=== PATIENT | female | born 1960 | race Caucasian/White ===

== ENCOUNTER 2017-06-01 11:53 | Day surgery (SDC) | payer OTHER ==
[~2017-06-01] VITALS: Ht 157.5 cm; Wt 109.7 kg
[~2017-06-01 11:53] MED LIST: ALBU.083IS IH; ALBU90OI INH; ALBU90OI61 INH; CITA20 PO; CLIN150 PO; CLIN300 PO; CYCL10 PO; DIPH25 PO; DOXY100 PO; HYDACE5 PO; HYDCHL25 PO; LISI10 PO; LISI5 PO; MECL25 PO; METH10 PO; METH5 PO; OXYACE5T PO; OXYC5 PO; PRED20 PO; PROCODE120 PO; PROP10 PO; Percocet 5-3251 EACH PO; Prednisone20 MG PO; Prinivil5 MG PO; RXCLIN PO; SERT100 PO; Tylenol325 MG PO; Zithromax250 MG PO; [UNRECOGNIZED DRUG - OTHER]
== END 2017-06-01 12:21 | disposition home or self-care (01) ==
LOC: ORSCSDS 11:53
PROVIDERS: Orthopaedic Surgery
PROC: 0JBD0ZZ Excision of Right Upper Arm Subcutaneous Tissue and Fascia, Open Approach (ICD-10-PCS; principal; 2017-06-01 13:30)
DX: D17.21 Benign lipomatous neoplasm of skin and subcutaneous tissue of right arm (principal); E66.01 Morbid (severe) obesity due to excess calories; Z68.41 Body mass index [BMI] 40.0-44.9, adult; J45.909 Unspecified asthma, uncomplicated; Z79.899 Other long term (current) drug therapy
CPT/HCPCS: 88304; J1100; J2250; J2405; J3010; J7120

== ENCOUNTER 2018-07-23 18:45 | Emergency (ER) | payer OTHER ==
[~2018-07-23] VITALS: Ht 160 cm; Wt 109.3 kg
[2018-07-23] MEDS ORDERED: TRAZ50 PO (19:21)
[2018-07-23] MEDS ORDERED: VENL75ER PO (19:21)
[2018-07-23] MEDS ORDERED: ZESTORETIC 20-251 EA PO (19:21)
[2018-07-23] MEDS ORDERED: AMLO5 PO (19:22)
[2018-07-23] MEDS ORDERED: BENZ100A PO (19:30)
== END 2018-07-23 19:42 | disposition home or self-care (01) ==
LOC: ER 18:45
DX: J06.9 Acute upper respiratory infection, unspecified (principal); J45.909 Unspecified asthma, uncomplicated; I10 Essential (primary) hypertension; F32.9 Major depressive disorder, single episode, unspecified; Z88.0 Allergy status to penicillin; Z88.2 Allergy status to sulfonamides; Z91.030 Bee allergy status; Z79.899 Other long term (current) drug therapy; Z87.01 Personal history of pneumonia (recurrent)
CPT/HCPCS: 71046; 99283-25

== ENCOUNTER 2020-03-29 08:11 | Day surgery (SDC) | payer OTHER ==
[~2020-03-29] VITALS: Ht 157.5 cm; Wt 110.8 kg
[~2020-03-29 08:11] MED LIST changes: +AMLO5 PO; +BENZ100A PO; +TRAZ50 PO; +VENL75ER PO; +ZESTORETIC 20-251 EA PO
[2020-03-29] MEDS ORDERED: BUSP10 (08:42)
[2020-03-29] MEDS ORDERED: SERT20L (08:43)
== END 2020-03-29 09:59 | disposition home or self-care (01) ==
LOC: ORSCSDS 08:11
PROVIDERS: Internal Medicine Gastroenterology
PROC: 0DBM8ZX Excision of Descending Colon, Via Natural or Artificial Opening Endoscopic, Diagnostic (ICD-10-PCS; principal; 2020-03-29 09:15)
DX: Z12.11 Encounter for screening for malignant neoplasm of colon (principal); D12.4 Benign neoplasm of descending colon; K57.30 Diverticulosis of large intestine without perforation or abscess without bleeding; K64.8 Other hemorrhoids; I10 Essential (primary) hypertension; E66.01 Morbid (severe) obesity due to excess calories; Z68.41 Body mass index [BMI] 40.0-44.9, adult; Z79.899 Other long term (current) drug therapy
CPT/HCPCS: 88305; J2704; J7120

== ENCOUNTER → 2020-11-11 | Outpatient (CLI) | payer OTHER ==
[~2020-11-11] MED LIST changes: +BUSP10; +SERT20L
== END | disposition home or self-care (01) ==
LOC: LAB SHORT 08:00
DX: L57.0 Actinic keratosis (principal)
CPT/HCPCS: 88305

== ENCOUNTER 2021-11-25 11:48 | Inpatient (IN) | payer OTHER ==
[~2021-11-25] VITALS: Ht 167.6 cm; Wt 91.0 kg
[~2021-11-25 11:48] MED LIST changes: -SERT20L; -TRAZ50 PO; -ZESTORETIC 20-251 EA PO
[2021-11-25 12:15] LABS: BASOPHILS ABSOLUTE AUTO 0.03 K/mm3 (0.00-0.23); BASOPHILS PERCENT AUTO 0 % (0-2); EOSINOPHILS ABSOLUTE AUTO 0.16 K/mm3 (0.00-0.68); EOSINOPHILS PERCENT AUTO 2 % (0-6); Hemoglobin 12.2 g/dL (11.5-16.0); IMMATURE GRAN ABSOLUTE AUTO 0.02 K/mm3 (0.00-0.10); IMMATURE GRAN PERCENT AUTO 0 % (0-1); LYMPHOCYTES ABSOLUTE AUTO 1.92 K/mm3 (0.84-5.20); LYMPHOCYTES PERCENT AUTO 20 % (21-46); MONOCYTES ABSOLUTE AUTO 0.43 K/mm3 (0.16-1.47); MONOCYTES PERCENT AUTO 4 % (4-13); Mean Corpuscular HGB 28.9 pg (26.0-34.0); Mean Corpuscular HGB Conc 31.3 g/dL (31.5-36.5); Mean Corpuscular Volume 92 fL (80-100); Mean Platelet Volume 10.1 fL (9.1-12.4); NEUTROPHILS ABSOLUTE AUTO 7.28 K/mm3 (1.96-9.15); NEUTROPHILS PERCENT AUTO 74 % (41-73); Platelet Count 185 K/mm3 (150-400); RDW Coefficient Variation 14.6 % (11.7-14.2); RDW Standard Deviation 50.2 fL (35.1-46.3); Red Blood Cell Count 4.22 M/mm3 (3.80-5.20); White Blood Cell Count 9.84 K/mm3 (4.00-11.30)
[2021-11-25 12:20] LABS: Base Excess Venous -3.4 mmol/L; Bicarbonate Venous 20.7 mmol/L (24.0-30.0); pH Blood Venous 7.23 (7.34-7.37)
[2021-11-25 12:40] LABS: Alanine Aminotransfer (ALT/SGP 22 U/L (12-78); Albumin, Blood 3.3 g/dL (3.4-5.0); Albumin/Globulin Ratio 0.9 (0.8-1.8); Alk Phos 75 U/L (50-136); Anion Gap 7 mmol/L (6-16); Aspartate Aminotrans (AST/SGOT 24 U/L (12-37); Bilirubin, Total 0.3 mg/dL (0.1-1.0); Blood Urea Nitrogen 23 mg/dL (8-24); Bun/Creatinine Ratio 6.2 (12.0-20.0); CO2, Blood 24 mmol/L (21-32); Calcium, Blood 9.5 mg/dL (8.5-10.1); Chloride, Blood 109 mmol/L (98-108); Creatinine, Blood 3.73 mg/dL (0.40-1.00); Ethanol (Alcohol), Blood, Med <3 mg/dL; Globulin, Blood 3.6 g/dL (2.2-4.0); Glomerular Filtration Rate 13 (60-); Glucose, Blood 117 mg/dL (70-99); Potassium, Blood 4.6 mmol/L (3.5-5.5); Sodium, Blood 140 mmol/L (136-145); Total Protein, Blood 6.9 g/dL (6.4-8.2)
[2021-11-25 13:32] LABS: International Normalized Ratio 0.99; Prothrombin Time Results 10.4 Sec (9.7-11.5)
[2021-11-25 14:34] LABS: Source, Urine Foley catheter
[2021-11-25 14:44] LABS: Appearance, Urine Cloudy (Clear); Blood, Urine 2+ (Neg); Color, Urine Yellow (P-Yellow); Glucose Qualitative, Urine 1+ (Neg); Ketones, Urine 1+ (Neg); Leukocyte Esterase, Urine 2+ (Neg); Nitrite, Urine Neg (Neg); Protein, Urine 3+ (Neg); Specific Gravity, Urine 1.025 (1.003-1.022); Urobilinogen, Urine 1+ (Normal)
[2021-11-25 14:57] LABS: U Methadone Screen DETECTED; U Opiates Screen DETECTED
[2021-11-25 14:58] LABS: U Amphetamine Screen Not Detected; U Barbituate Screen Not Detected; U Benzodiazapine Screen DETECTED; U Buprenorphine Screen Not Detected; U Cannabinoids Screen Not Detected; U Cocaine Screen Not Detected; U Methamphetamine Screen Not Detected; U Oxycodone Screen Not Detected; U Phencyclidine Screen Not Detected; U Propoxyphene Screen Not Detected
[2021-11-25 15:04] LABS: Bilirubin, Urine 1+ (Neg)
[2021-11-25 15:07] LABS: Amorphous Light (0-Heavy); Bacteria Many /hpf; Calcium Oxalate Crystals Few /hpf; Red Blood Cells, Urine 0-2 /hpf (0-2); Squamous Epithelial Cells Rare /hpf (Few); White Blood Cells, Urine 0-2 /hpf (0-5)
[2021-11-25 15:13] LABS: PCO2 Arterial 52.4 mmHg (35-45); PO2 Arterial 96.4 mmHg (80-100); pH Blood Arterial 7.23 (7.35-7.45)
[2021-11-25 16:23] LABS: Albumin, Blood 3.4 g/dL (3.4-5.0); Anion Gap 9 mmol/L (6-16); Blood Urea Nitrogen 22 mg/dL (8-24); Bun/Creatinine Ratio 6.5 (12.0-20.0); CO2, Blood 22 mmol/L (21-32); Calcium, Blood 9.2 mg/dL (8.5-10.1); Chloride, Blood 110 mmol/L (98-108); Creatinine, Blood 3.39 mg/dL (0.40-1.00); Glomerular Filtration Rate 15 (60-); Glucose, Blood 155 mg/dL (70-99); Phosphorus, Blood 4.2 mg/dL (2.5-4.9); Sodium, Blood 141 mmol/L (136-145)
[2021-11-25 17:49] LABS: PCO2 Arterial 49.5 mmHg (35-45); PO2 Arterial 74.5 mmHg (80-100); pH Blood Arterial 7.27 (7.35-7.45)
--- NOTE | 2021-11-25 19:30 | NUR ---
PT ARRIVED TO ICU AT 1835. INTUBATED IN ER, ARRIVED WITH RN AND RT AT BEDSIDE. DAUGHTER VERIFIED IDENTITY AT BEDSIDE. LEVOPHED STOPPED UPON ARRIVAL DUE TO SBP 160. PT IN SOFT BILAT WRIST RESTRAINTS. SKIN CHECK COMPLETED WITH SANDEEP SLATER. NO SKIN BREAKDOWN IDENTIFIED. 2 LARGE MEDICATION PATCHES REMOVED FROM LOWER BACK. DAUGHTER LEFT MEDICATIONS AT BEDSIDE FOR VERIFICATION/RECONCILIATION PURPOSES. PIV LEFT FOREARM REMOVED DUE TO INFILTRATION. PIV TO RIGHT HAND AND LEFT HAND. REPORT GIVEN TO ONCOMING RN.
--- NOTE | 2021-11-25 21:28 | NUR ---
PT NEW ADMIT TO ICU AROUND 1830. PT INTUBATED AND SEDATED FAMILY NOT IN THE ROOM. DR BARKER DID SPEAK WITH FAMILY MEMBER AND THERE IS CONCERN THAT THIS COULD HAVE BEEN AND INTENTIONAL OD POSSIBLE SUICIDE ATTEMPT. MEDICATIONS WERE WITH PT BELONGINGS SENT THEM TO PHARMACY TO BE REVIEWED AND STORED. PT CURRENTLY ON 10 MCG PROPOFOL WILL OPEN EYES TO VOICE NOT FOLLOWING COMMANDS AT THIS TIME. WILL CONTINUE TO MONITOR.
[2021-11-25 23:43] LABS: PCO2 Arterial 30.4 mmHg (35-45); PO2 Arterial 60.9 mmHg (80-100); pH Blood Arterial 7.39 (7.35-7.45)
--- NOTE | 2021-11-26 00:30 | NUR ---
PT WEDDING RING PT HAD WEDDING RING ON THAT WAS GETTING TIGHT. REMOVED PUT IN SPECIMEN CUP WITH PT LABEL AND PUT IT IN HER BLACK AND RED BAG THAT DAUGHTER BROUGHT MEDICATIONS IN. THE BAG IS ON HER SHELF IN HER ROOM NEXT TO HER BELONGING BAG. PT MEDICATIONS WERE TAKEN TO PHARMACY.
[2021-11-26 03:41] LABS: Hemoglobin 12.8 g/dL (11.5-16.0); Mean Corpuscular HGB 28.3 pg (26.0-34.0); Mean Corpuscular Volume 89 fL (80-100); Mean Platelet Volume 10.5 fL (9.1-12.4); Platelet Count 207 K/mm3 (150-400); RDW Coefficient Variation 14.3 % (11.7-14.2); RDW Standard Deviation 46.5 fL (35.1-46.3); Red Blood Cell Count 4.52 M/mm3 (3.80-5.20); White Blood Cell Count 8.55 K/mm3 (4.00-11.30)
[2021-11-26 04:18] LABS: Anion Gap 11 mmol/L (6-16); Blood Urea Nitrogen 20 mg/dL (8-24); Bun/Creatinine Ratio 9.8 (12.0-20.0); CO2, Blood 20 mmol/L (21-32); Calcium, Blood 10.1 mg/dL (8.5-10.1); Chloride, Blood 110 mmol/L (98-108); Creatinine, Blood 2.05 mg/dL (0.40-1.00); Glomerular Filtration Rate 27 (60-); Glucose, Blood 220 mg/dL (70-99); Potassium, Blood 3.6 mmol/L (3.5-5.5); Sodium, Blood 141 mmol/L (136-145)
[2021-11-26 04:42] LABS: Phosphorus, Blood 0.8 mg/dL (2.5-4.9)
--- NOTE | 2021-11-26 05:02 | NUR ---
END OF SHIFT SUMMARY NO ACUTE CHANGES OVERNIGHT. PT BP REMAINED STABLE OFF LEVO. PT ON 20 OF PROPOFOL AND APPEARS COMFORTABLE AND TOLERATING VENT. PHOS CAME BACK LOW AT 0.8 DR. NEWMAN NOTIFIED AND REPLACEMENTS ORDERED. WILL CONTINUE TO MONITOR. WILL GIVE BEDSIDE REPORT TO ONCOMING RN.
--- NOTE | 2021-11-26 05:55 | NUR ---
PT OPENED EYES THIS MORNING FOLLOWED ALL COMMANDS WAS ABLE TO SQUEEZE WITH BILAT HANDS THIS RN HAND. PT ABLE TO WIGGLE TOES AND NOD YES. WILL GIVE REPORT TO ONCOMING RN.
--- NOTE | 2021-11-26 07:47 | NUR ---
RECEIVED BEDSIDE REPORT FROM SANDEEP BENITEZ, [facility] HERE TO PERFORM ORDERED TEST. PT ON VENT AC 22/360/8/35%. PROPOFOL @ 20MCG/KG, PHOS REPLACEMENT INFUSING. ASSIST TO GET LEADS ON PT IS LEFT FACING WITH STRONG PULL, IN TO SEE PT. ORDERS RECEIVED. PT NOW UNDERGOING EEG. PROPOFOL ON STANDBY, FULL ASSESSMENT TO FOLLOW, SEE CHARTING.
--- NOTE | 2021-11-26 11:47 | NUR ---
PT'S PROPOFOL DOWN TO 10MCG/KG PER REQUEST. SHE IS MORE ALERT, DROWSY. EYES ARE TEARFUL, NOT ANSWERING QUESTIONS AT THIS TIME. SISTER AT THE BEDSIDE.
--- NOTE | 2021-11-26 15:02 | NUR ---
ASSUMED CARE OF PT AT 1430. PT IS ALERT AND ORIENTED. HAS MISSED DIALYSIS TODAY DUE TO BEING IN THE HOSPITAL, SHE IS NORMALLY ON A -- SCHEDULE OUTPT. PER REPORT, PT'S PROXIMAL PORT WHERE HEPARIN WAS INFUSING WAS OCCLUDED. INSTRUCTIONS FROM CHAIN TENDER/DR. IVERSON WERE TO MOVE HEPARIN TO THE PERIPHERAL IV LINE AND KEEP TPA INFUSING. PT STATES PAIN IN ARM HAS LESSENED. PT TAKEN BACK TO CHAIN TENDER AT 1445. RN TO CONTINUE TO MONITOR.
--- NOTE | 2021-11-26 19:17 | NUR ---
END OF SHIFT NOTE ASSUMED CARE OF PT AT 1430. ALERT AND FOLLOWING COMMANDS OFF SEDATION. TOLERATING VENT SETTINGS. REPOSITIONED EVERY 2 HOURS. FAMILY (MOTHER AND MOTHER IN LAW) IN TO VISIT. EDUCATED ON PLAN OF CARE. ALL QUESTIONS ANSWERED. SEDATION RESTARTED PER MD REQUEST, PLAN FOR EXTUBATION TOMORROW. REPORT GIVEN TO ONCOMING RN.
--- NOTE | 2021-11-26 19:45 | NUR ---
ASSESSMENT: PT SEDATED, BUT OPENS EYES TO VERBAL STIMULI AND ATTEMPTS TO NOD HEAD. IS QUITE RESTLESS WITH HER LEGS. TANIA AT 3MM BILAT. BILAT WRIST RESTRAINTS ON. LS COARSE T/O AND DIMINSHD NTHE BASES WITH BIOX 93% ON VENT SETTINGS AC 22, TV 360, FIO2 30% AND PEEP5. ETT 7.5 23 AT LIP. PEAK PRESSURES 22 AND ETCO2 23. SKIN PINK WARM AND DRY WITH PPP BILAT. MORALES TEMP READING 100.1; FAN ON WITH ONLY A GOWN ON. HEART SOUNDS DISTANT WITH MOITOR SHOWING NSR WITH HR 63. 20G IV R HAND S/L. 20G IV L HAND WITH LR RUNNING AT 100CC/HR ND PROPOFOL AT 20MCG/KG/MIN= 14CC/HR. ABD R/D WITH HYPO BTX4. OG TO LIS AND DRAINING DARK BILE. MORALES DRAINING CLEAR YELLOW UINE.
--- NOTE | 2021-11-27 00:41 | NUR ---
REASSESS: PT IS VERY RIGID AND STIFF WITH TURNS. EASILY AROUSED BUT DRIFTS BACK ASLEEP QUICKLY. NO ACUTE CHANGES.
[2021-11-27 03:56] LABS: Albumin, Blood 2.7 g/dL (3.4-5.0); Anion Gap 6 mmol/L (6-16); Blood Urea Nitrogen 18 mg/dL (8-24); CO2, Blood 25 mmol/L (21-32); Calcium, Blood 9.4 mg/dL (8.5-10.1); Chloride, Blood 111 mmol/L (98-108); Creatinine, Blood 1.38 mg/dL (0.40-1.00); Glomerular Filtration Rate 44 (60-); Glucose, Blood 117 mg/dL (70-99); Magnesium, Blood 1.7 mg/dL (1.6-2.4); Phosphorus, Blood 2.4 mg/dL (2.5-4.9); Potassium, Blood 4.1 mmol/L (3.5-5.5); Sodium, Blood 142 mmol/L (136-145)
[2021-11-27 05:02] LABS: Hematocrit 40.3 % (33.0-51.0); Hemoglobin 13.3 g/dL (11.5-16.0); Mean Corpuscular HGB 28.8 pg (26.0-34.0); Mean Corpuscular Volume 87 fL (80-100); Mean Platelet Volume 10.2 fL (9.1-12.4); Platelet Count 214 K/mm3 (150-400); RDW Coefficient Variation 14.7 % (11.7-14.2); RDW Standard Deviation 46.9 fL (35.1-46.3); Red Blood Cell Count 4.62 M/mm3 (3.80-5.20)
--- NOTE | 2021-11-27 06:01 | NUR ---
SHIFT SUMMARY: PT HAS BEEN ON 20MCG/KG/HR OF PROPOFOL THIS AM AND IS AWAKE AND RESPONSIVE. FOLLOWING COMMANDS AND SLOW TO RESPOND. PT IS VERY RIGID WITH TURNS. WILL TRY FOR A WEAN LATER THIS AM.
--- NOTE | 2021-11-27 10:18 | NUR ---
CAME TO EVALUATE THE PATIENT, DETERMINED SHE IS ABLE TO BE EXTUBATED AT THIS TIME, RESPIRATORY THERAPY CALLED, BENJAMIN LANDON CAME AND PT WAS EXTUBATED AT 1007. SHE IS ALERT AND COOPERATIVE. SHE IS PLACED IN 1:1 OBSERVATION FOR INTENTIONAL OD. EXPLAINED TO PATIENT.
--- NOTE | 2021-11-27 10:55 | NUR ---
Pt. is awake in bed and welcomes my visit. Pts. sister is present. Pt. is unsettled about many family losses in the past year, including her spouse. Pt. verbalizes that she is a woman of turner. Listen empathetically with a calming presence. Pt. displays evidence of being appropriately cathartic. Pastoral financial services counselor is given addressing the real impact of grief, and the promise of hope. Pt. displayed evidence of understanding and agreement. Prayed with Pt. Pt. verbalized gratitude for the spiritual care visit.
--- NOTE | 2021-11-27 13:25 | NUR ---
CAME TO SEE KENNY POST EXTUBATION. DC'D THE SITTER AND SAID SHE COULD BE PCU STATUS. SHE RETURNED TO THE BED WITH SBA USING THE WALKER, FOLLOWING COMMANDS. THE CATHETER WAS REMOVED BY THE STUDENT NURSE AND THE AMOUNT RECORDED. PT JOVIAL AND ENGAGING. DENIES ANY REQUESTS AT THIS TIME.
[2021-11-27] MEDS ORDERED: FLUT.05NI (13:44)
[2021-11-27] MEDS ORDERED: Cetirizine HCl10 MG PO (13:44)
[2021-11-27] MEDS ORDERED: DRAMAMINE25 M3 PO (13:45)
[2021-11-27] MEDS ORDERED: BACLOFEN10 M4 PO (13:46)
[2021-11-27] MEDS ORDERED: Ativan1 MG PO (13:47)
[2021-11-27] MEDS ORDERED: MELO7.5 PO (13:48)
[2021-11-27] MEDS ORDERED: TRAZ100 PO (13:48)
[2021-11-27] MEDS ORDERED: FLUTICASONE-SA1 EAC9 INH (13:49)
[2021-11-27] MEDS ORDERED: LISINOPRIL-HCT1 EAC1 PO (13:49)
[2021-11-27] MEDS ORDERED: SERT100 PO (13:50)
--- NOTE | 2021-11-27 15:51 | NUR ---
Telephone report received from [employer] OPERATOR. Pt will transfer from ICU 6 to PCU 16.
--- NOTE | 2021-11-27 16:26 | NUR ---
REPORT TO NATHAN JACKSON RN FOR PATIENT TO BE TRANSFERRED TO PCU 16. PT MADE AWARE OF MOVE, UP TO BSC, PT HAD BM THEN TRANSFERRED TO WHEELCHAIR AND MOVED TO PCU 16 WITH THE PCT'S. PT VERBALLY SAID LION
--- NOTE | 2021-11-27 16:40 | NUR ---
Patient arrived from ICU, in wheelchair. Transferred from wheelchair to recliner at bedside with PCT assistance, no walker needed. Moderate assistance. PT is alert, oriented, on room air, and no dyspnea noted. Lung sounds are clear to auscultation. STates that she is coughing up a lot of sputum today. Yankauer given to her attached to low/med suction to evacuate secretions ad darrin. 4 family members of varying ages arrived with family dog to visit the patient.
--- NOTE | 2021-11-27 17:40 | NUR ---
Pt remains in normal sinus rhythm, 69 bpm. No c/o any discomfort. Ambulatory to the bathroom without difficulty, no symptoms.
[2021-11-28 04:20] LABS: Hematocrit 34.8 % (33.0-51.0); Hemoglobin 11.3 g/dL (11.5-16.0)
[2021-11-28 04:48] LABS: Albumin, Blood 2.9 g/dL (3.4-5.0); Anion Gap 6 mmol/L (6-16); Blood Urea Nitrogen 17 mg/dL (8-24); Bun/Creatinine Ratio 13.3 (12.0-20.0); CO2, Blood 25 mmol/L (21-32); Calcium, Blood 9.7 mg/dL (8.5-10.1); Chloride, Blood 114 mmol/L (98-108); Creatinine, Blood 1.28 mg/dL (0.40-1.00); Glomerular Filtration Rate 48 (60-); Glucose, Blood 100 mg/dL (70-99); Magnesium, Blood 1.9 mg/dL (1.6-2.4); Phosphorus, Blood 3.3 mg/dL (2.5-4.9); Potassium, Blood 3.7 mmol/L (3.5-5.5); Sodium, Blood 145 mmol/L (136-145)
--- NOTE | 2021-11-28 05:29 | NUR ---
SHIFT SUMMARY PT IS A/Ox4 AND IS COOPERATIVE WITH CARE GIVEN BY STAFF. PT WAS EXTUBATED ON 11/27/2021 AND TRANSFERRED TO PCU DURING DAYSHIFT. PT'S MENTATION HAS SIGNIFICANTLY IMPROVED SINCE HER STAY IN THE ICU WITH PT BEING ABLE TO ANSWER ALL OF MY QUESTIONS APPROPRIATELY. PT MAINTAINS SPO2 >95% ON RA WITH NO SOB OR DYSPNEA REPORTED WITH AMBUALTION. TOLERATES AMBULATION WELL, BUT CAN BE A LITTLE WEAK AT TIMES. READING THROUGH PT'S CHART, IT APPEARS SHE MAY BENEFIT FROM HOME HEALTH VISITS FOR SHE IS THE CAREGIVER FOR SEVERAL OF HER FAMILY MEMBERS. BP AND HE HAVE BEEN STABLE WITH NO INTERVENTION NEEDED AT THIS TIME. PT'S TOX SCREEN CAME BACK POSTIVE FOR A NUMBER OF MEDICATIONS INCLUDING OPIODS, METHADONE, TRICYCLICS, AND BENZOS. NADN AND VSS STABLE T/O THE SHIFT
--- NOTE | 2021-11-28 09:46 | NUR ---
Spiritual Care Consult Pt. is awake and sitting in a recliner and welcomes my visit. Pts. daughter is present. Pt. displays evidence of being rested and enaged with her recovery. Pts. daughter verbalized seious turner concerns due to health afflictions of her daughter (Pts. grandduaghter). Listen empathetically with a calming presence. Pt. grabbed my hand, and I prayed with pt. Pt. verbalized gratitude for the spiritual care visit.
== END 2021-11-28 12:52 | disposition home or self-care (01) | DRG 917 ==
LOC: ER 11:48 → ICUE 14:41 → ICUW 14:41 → ICUE 18:37 → PCU 11-27 16:22
PROVIDERS: Emergency Medicine; Internal Medicine Critical Care Medicine; Internal Medicine Nephrology; Student in an Organized Health Care Education/Training Program; ADMIT Family Medicine
PROC: 0BH17EZ Insertion of Endotracheal Airway into Trachea, Via Natural or Artificial Opening (ICD-10-PCS; principal; 2021-11-25)
PROC: 5A1945Z Respiratory Ventilation, 24-96 Consecutive Hours (ICD-10-PCS; 2021-11-25)
DX: T40.601A Poisoning by unspecified narcotics, accidental (unintentional), initial encounter (principal); G92.8 Other toxic encephalopathy; J96.01 Acute respiratory failure with hypoxia; J96.02 Acute respiratory failure with hypercapnia; E87.29 Other acidosis; N17.9 Acute kidney failure, unspecified; N39.0 Urinary tract infection, site not specified; M06.852 Other specified rheumatoid arthritis, left hip; M06.851 Other specified rheumatoid arthritis, right hip; M06.862 Other specified rheumatoid arthritis, left knee; M06.861 Other specified rheumatoid arthritis, right knee; F32.A Depression, unspecified; G47.33 Obstructive sleep apnea (adult) (pediatric); J44.9 Chronic obstructive pulmonary disease, unspecified; F41.8 Other specified anxiety disorders; E66.9 Obesity, unspecified; D63.1 Anemia in chronic kidney disease; I12.9 Hypertensive chronic kidney disease with stage 1 through stage 4 chronic kidney disease, or unspecified chronic kidney disease; N18.30 Chronic kidney disease, stage 3 unspecified; E88.09 Other disorders of plasma-protein metabolism, not elsewhere classified; E83.39 Other disorders of phosphorus metabolism; Z98.890 Other specified postprocedural states; Z90.710 Acquired absence of both cervix and uterus; Z79.899 Other long term (current) drug therapy; Z88.0 Allergy status to penicillin; Z88.2 Allergy status to sulfonamides; Z88.8 Allergy status to other drugs, medicaments and biological substances; Z91.030 Bee allergy status
CPT/HCPCS: 31500; 36415; 36600; 51702; 70450; 71045; 76770; 80053; 80069; 81001; 82803; 82947; 83735; 84100; 84146; 85014; 85018; 85025; 85027; 85610; 85730; 87040; 87070; 87086; 87106; 87205; 93005; 93010; 94002; 94003; 94640; 94660; 94664; 94760; 95819; 96361; 96365; 96375; 96376; 97110; 97162; 97166; 97530; 99291-25; 99292; A9270; C9113; G0480; J0696; J1644; J1953; J2250; J2310; J2704; J2930; J3010; J7030; J7060; J7120

== ENCOUNTER → 2022-01-13 | Outpatient (CLI) | payer OTHER ==
[~2022-01-13] MED LIST changes: +Ativan1 MG PO; +BACLOFEN10 M4 PO; +Cetirizine HCl10 MG PO; +DRAMAMINE25 M3 PO; +FLUT.05NI; +FLUTICASONE-SA1 EAC9 INH; +LISINOPRIL-HCT1 EAC1 PO; +MELO7.5 PO; +TRAZ100 PO
[2022-01-21 13:11] LABS: HPV 16 Negative (Negative); HPV 18 Negative (Negative); HPV OTHER HR TYPES Negative (Negative)
== END ==
LOC: LAB SHORT 15:46 → LAB 15:46
PROVIDERS: Family Medicine
DX: Z01.419 Encounter for gynecological examination (general) (routine) without abnormal findings (principal)
CPT/HCPCS: 87624; G0123

== ENCOUNTER 2024-09-12 08:16 | Day surgery (SDC) | payer OTHER ==
[2024-09-12] VITALS (21 sets, daily range): BP systolic 107–162; BP diastolic 57–100
[~2024-09-12] VITALS: Ht 157.5 cm; Wt 102.9 kg
[~2024-09-12 08:16] MED LIST changes: +EPIPEN0.3 MG/0.3 IM; +Estrace Vagin42.5 GM VAG; +IMITREX50 M1 PO; +LORA10ER PO; +Prinivil10 MG PO; +TIZA4 PO; +TIZANIDINE HCL2 MG PO; +Tessalon200 MG PO; +Ventolin5 MG/1 ML INH
[2024-09-12] MEDS ORDERED: CeFAZolin Sodium 2,000 MG in NS 100 ML IV SCH ×2 (08:50→20:00)
[2024-09-12] MEDS ORDERED: Ropivacaine 0.5% HCl/Pf 123.125 MG,EPINEPHrine HCL 0.25 MG,Ketorolac Tromethamine 15 MG... INFIL SCH (08:50)
[2024-09-12] MEDS ORDERED: Chlorhexidine Mouth Care 15 ML UDC MT SCH (08:50)
[2024-09-12] MEDS ORDERED: Tranexamic Acid 100 ML IV SCH (08:53)
--- NOTE | 2024-09-12 09:45 | NUR ---
AMBULATORY INTO [facility]. PT REPORTS 4/10 RIGHT KNEE AND LOW BACK PAIN. HISTORY AND ALLERGIES REVIEWED. LUNGS CLEAR. PT DENIES SOB. SBP 160'S-PT STATES THAT SHE IS "STARTING TO GET NERVOUS." NPO STATUS CONFIRMED. CHLORHEXIDINE SHOWER AND WIPE X 2. PT BELONGINGS GIVEN TO HER DAUGHTER DARCY.
[2024-09-12] MEDS ORDERED: FentaNYL Citrate 50 MCG/ML 2 ML Injection ONE ×2 (10:00→15:00)
[2024-09-12] MEDS ORDERED: Ondansetron HCl 2 MG / ML 2ML Vial ONE (14:58)
[2024-09-12] MEDS ORDERED: HYDROmorphone HCl/Pf 1MG SYR ONE (14:58)
[2024-09-12] MEDS ORDERED: Albuterol 2.5 MG/3 ML VIAL INH PRN (15:10)
[2024-09-12] MEDS ORDERED: FentaNYL Citrate 50 MCG/ML 2 ML Injection IV PRN ×2 (15:10→15:15)
[2024-09-12] MEDS ORDERED: HYDROmorphone HCl/Pf 1MG SYR IV PRN ×3 (15:15→18:10)
[2024-09-12] MEDS ORDERED: Ondansetron HCl 2 MG / ML 2ML Vial IV PRN ×2 (15:15→18:05)
[2024-09-12] MEDS ORDERED: Labetalol HCL 5 MG/ML 4ML Injection (Single Dose) IV PRN (15:15)
[2024-09-12] MEDS ORDERED: Metoclopramide HCl 5MG / ML 2ML Vial IV PRN ×2 (15:15→18:05)
--- NOTE | 2024-09-12 16:01 | NUR ---
POST-OP PATIENT TO ROOM @1550, AOX4, REPORTS PAIN 6/10 NO ORDERS FOR PAIN MEDS, WILL ADDRESS WITH CALL TO DR OLIVEIRA. DRESSING TO KNEE IS C/D/I. ICE, SCDS, VALENTE HOSE IN PLACE. TAKING IN SIPS OF CL. VSS. CALL LIGHT IN REACH.
[2024-09-12] MEDS ORDERED: Magnesium Hydroxide Conc 10 ML UDC PO PRN (18:05)
[2024-09-12] MEDS ORDERED: Ketorolac Tromethamine 15mg Vial IV SCH (19:00)
--- NOTE | 2024-09-12 19:55 | NUR ---
ASSUMED CARE POD 0 S/P RIGHT TKA. DRESSING CDI, POLAR PACK AND SCDS IN PLACE. PAIN MANAGED PER EMAR. HAS VOIDED AND AMB WITH SBA, FWW, GB- PT HANNAH WELL. SNACKS AND ICE WATER PROVIDED. PT DENIES N/V, HANNAH PO INTAKE. PT UP IN BED WATCHING TV AND VISITING WITH DAUGHTER IN ROOM. HAS CALL LIGHT IN REACH.
[2024-09-13 00:45] VITALS: BP 113/53
[2024-09-13 04:06] VITALS: BP 105/60
--- NOTE | 2024-09-13 04:19 | NUR ---
SHIFT SUMMARY POD 1 S/P RIGHT TKA. DRESSING/VIRY WRAP CDI, POLAR PACK IN PLACE TO RIGHT KNEE. PAIN MANAGED PER EMAR. HANNAH PO INTAKE, DENIES N/V. ABX INFUSED PER ORDERS. IS VOIDING. AMBULATING IN HALLWAYS AND ROOM WITH SBA, FWW, GB. PLAN TO WORK WITH THERAPY AND DC HOME TODAY. WILL GIVE REPORT TO ONCOMING RN.
[2024-09-13 05:03] LABS: BASOPHILS ABSOLUTE AUTO 0.03 K/mm3 (0.00-0.23); BASOPHILS PERCENT AUTO 0 % (0-2); EOSINOPHILS ABSOLUTE AUTO 0.18 K/mm3 (0.00-0.68); EOSINOPHILS PERCENT AUTO 2 % (0-6); Hematocrit 34.8 % (33.0-51.0); Hemoglobin 11.0 g/dL (11.5-16.0); IMMATURE GRAN ABSOLUTE AUTO 0.04 K/mm3 (0.00-0.10); IMMATURE GRAN PERCENT AUTO 0 % (0-1); LYMPHOCYTES ABSOLUTE AUTO 1.53 K/mm3 (0.84-5.20); LYMPHOCYTES PERCENT AUTO 17 % (21-46); MONOCYTES ABSOLUTE AUTO 0.64 K/mm3 (0.16-1.47); MONOCYTES PERCENT AUTO 7 % (4-13); Mean Corpuscular HGB Conc 31.6 g/dL (31.5-36.5); Mean Corpuscular Volume 90 fL (80-100); NEUTROPHILS ABSOLUTE AUTO 6.81 K/mm3 (1.96-9.15); NEUTROPHILS PERCENT AUTO 74 % (41-73); NRBC ABSOLUTE 0.00 K/mm3 (0.00-0.02); NRBC Auto 0.0 /100 WBC (0.0-0.2); Platelet Count 166 K/mm3 (150-400); RDW Coefficient Variation 14.5 % (11.7-14.2); RDW Standard Deviation 47.2 fL (35.1-46.3)
[2024-09-13 05:44] LABS: Anion Gap 8.0 mmol/L (3-11); Blood Urea Nitrogen 16.0 mg/dL (8-24); CO2, Blood 25.0 mmol/L (21-32); Calcium, Blood 8.6 mg/dL (8.5-10.1); Chloride, Blood 109.0 mmol/L (98-108); Creatinine, Blood 1.03 mg/dL (0.40-1.00); Glucose, Blood 102.0 mg/dL (70-99); Potassium, Blood 3.8 mmol/L (3.5-5.5); Sodium, Blood 138.0 mmol/L (136-145)
[2024-09-13 07:26] VITALS: BP 99/72
[2024-09-13 07:27] VITALS: BP 109/57
[2024-09-13] MEDS ORDERED: ASPI81CH PO (08:23)
--- NOTE | 2024-09-13 11:45 | NUR ---
DISCHARGE PATIENT IS VOIDING, WORKS WITH THERAPY. PAIN MANAGED WELL AND VSS. IV TAKEN OUT INTACT. ALL DC INSTRUCTIONS READ AND SIGNED. BELONGINGS PACKED AND TAKEN TO CAR. PATIENT IS WHEELED OUT TO PRIVATE CAR.
== END 2024-09-13 11:00 | disposition home or self-care (01) ==
LOC: ORSCMMR 08:16 → ORD 10:00 → ORSCMMR 10:00 → SURS 15:44 → ORSCMMR 09-13 11:00
PROVIDERS: Orthopaedic Surgery
PROC: 0SRC0J9 Replacement of Right Knee Joint with Synthetic Substitute, Cemented, Open Approach (ICD-10-PCS; principal; 2024-09-12 10:00)
DX: M17.11 Unilateral primary osteoarthritis, right knee (principal); I10 Essential (primary) hypertension; J45.909 Unspecified asthma, uncomplicated; E78.00 Pure hypercholesterolemia, unspecified; R73.03 Prediabetes; E66.01 Morbid (severe) obesity due to excess calories; Z68.41 Body mass index [BMI] 40.0-44.9, adult; G47.33 Obstructive sleep apnea (adult) (pediatric); E03.9 Hypothyroidism, unspecified; F41.9 Anxiety disorder, unspecified; Z79.899 Other long term (current) drug therapy
CPT/HCPCS: 36415; 73560-RT; 80048; 82947; 85025; 97110; 97161; 97530; A9270; C1713; C1776; J0690; J0735; J1171; J1885; J2405; J2704; J2795; J3010; J7120

== ENCOUNTER → 2024-11-30 | Outpatient (CLI) | payer OTHER ==
[~2024-11-30] MED LIST changes: +ASPI81CH PO
== END ==
LOC: LAB SHORT 17:41 → LAB 17:41
DX: R30.9 Painful micturition, unspecified (principal)
CPT/HCPCS: 87077; 87086; 87186

== ENCOUNTER → 2024-12-26 | Outpatient (CLI) | payer OTHER ==
[2024-12-26 16:07] LABS: Protein, Urine Quantitative 10.4 mg/dL (0.0-11.9)
[2024-12-26 16:24] LABS: Microalbumin, Urine Quant. <5.000 mg/L (0.000-20.000)
== END ==
LOC: LAB SHORT 08:45 → LAB 08:45
PROVIDERS: Internal Medicine Nephrology
DX: N18.30 Chronic kidney disease, stage 3 unspecified (principal); D63.1 Anemia in chronic kidney disease; R80.9 Proteinuria, unspecified
CPT/HCPCS: 82043; 82570; 84156